=== PATIENT | female | born 1985 | race Caucasian/White ===

== ENCOUNTER 2018-12-29 15:51 | Emergency (ER) | payer OTHER, SELFPAY ==
[2018-12-29 16:05] VITALS: BP 125/72; PULSE 94; RESP 12; TEMP 37.2; O2SAT 97
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
--- NOTE | 2018-12-29 16:17 | DI.RAD_ITS ---
SYMPTOM/DIAGNOSIS: TRAMA LEFT WRIST: Three views. No acute soft tissue, bone or joint abnormality is identified.
[2018-12-29 16:21] LABS: Bilirubin Negative (Negative); Blood Trace-intact (Negative); Clarity Clear; Glucose Negative (Negative); Ketones 15 mg/dL (Negative); Leukocyte Esterase Negative (Negative); Nitrite Negative (Negative); Urobilinogen 0.2 EU/dL (Up TO 0.2); pH 6.5 (5-8)
[2018-12-29 16:27] LABS: RBC 0-2 (0-2); WBC 0-2 HPF (0-5)
[2018-12-29 16:28] LABS: Bacteria Rare HPF (Negative); C & S Indicated? No; Casts Negative LPF (Negative); Crystals Negative HPF (Negative); Epithelial Cells Rare HPF (Negative); Mucus Negative (Negative); Other Cells Negative (Negative)
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
[2018-12-29 16:31] LABS: Abs Immature Grans 0.02 k/cumm (0.0-0.09); Absolute Basophil Count 0.03 k/cumm (0.0-0.2); Absolute Eosinophil Count 0.03 k/cumm (0.0-0.7); Absolute Lymphocyte Count 1.26 k/cumm (1.2-3.4); Absolute Monocyte Count 0.61 k/cumm (0.11-0.7); Absolute Neutrophil Count 8.53 k/cumm (1.2-6.7); Basophils % 0.3; Eosinophils % 0.3; HCT 35.9 % (36.0-46.0); Immature Grans % 0.2; Mean Corp. HGB Concentration 33.4 g/dL (32.0-36.0); Mean Corpuscular Hemoglobin 30.5 pg (27.0-33.0); Mean Corpuscular Volume 91.1 fL (80-95); Mean Platelet Volume 9.6 fL (8.0-11.0); Monocytes % 5.8; Neutrophils % 81.4; Platelet Count 262 x1000/uL (130-400); RBC 3.94 m/cumm (4.00-5.20); RBC Distribution Width 12.4 % (11.7-14.6); White Blood Cell Count 10.48 k/cumm (4.4-10.8)
[2018-12-29] MEDS: Normal Saline 1,000 ML 1000 ML IV (16:36)
[2018-12-29 16:46] LABS: ALT 24 U/L (12-78); AST 27 U/L (15-37); Alkaline Phosphatase 44 U/L (46-116); Anion Gap 9.4 mmol/L (3-11); BUN 20 mg/dL (7-18); Bilirubin, Total 0.3 mg/dL (0.2-1.0); CO2 25.6 mmol/L (21.0-32.0); CREATININE 0.76 mg/dL (0.55-1.02); Calcium 8.7 mg/dL (8.5-10.1); Chloride 100 mmol/L (98-107); Glucose 113 mg/dL (70-100); Magnesium 2.4 mg/dL (1.8-2.4); Potassium 4.1 mmol/L (3.5-5.1); Sodium 135 mmol/L (136-145); Total Protein 7.1 g/dL (6.4-8.2); Troponin I 0.02 ng/mL (0.00-0.06)
[2018-12-29] MEDS: fentaNYL 100 MCG/2 ML VIAL 50 MCG IVP (16:49)
[2018-12-29] MEDS: Omnipaque 350 MG/ML 100 ML BTL IJ (17:42)
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
[2018-12-29] MEDS: Acetaminophen 500 MG TAB 1000 MG PO (19:06)
[2018-12-29] MEDS: Cyclobenzaprine 10 MG TAB 30 MG PO (19:43)
[2018-12-29] MEDS: Ketorolac 15 MG/ML VIAL IVP (19:45)
[2018-12-29 20:40] VITALS: BP 136/83; PULSE 79; RESP 18; O2SAT 100
== END 2018-12-29 20:19 | disposition home or self-care (01) ==
PROVIDERS: Emergency Provider Physician Assistant
DX: S06.0X0A Concussion without loss of consciousness, initial encounter (principal); S16.1XXA Strain of muscle, fascia and tendon at neck level, initial encounter; M62.838 Other muscle spasm; S60.211A Contusion of right wrist, initial encounter; M25.512 Pain in left shoulder; V17.0XXA Pedal cycle driver injured in collision with fixed or stationary object in nontraffic accident, initial encounter
CPT/HCPCS: 36415; 74177; 80053; 81025; 90471; 96361; 96374; 96375; 99285; 70450; 70486; 71260; 72125; 73110; 81003; 81015; 83735; 84484; 85025; 99284; J1885; J3490; L0172